=== PATIENT | female | born 1985 | race Caucasian/White ===

== ENCOUNTER 2019-01-13 11:50 | Emergency (ER) | payer SELFPAY ==
[~2019-01-13] VITALS: Ht 170.2 cm; Wt 83.0 kg
[~2019-01-13 11:50] MED LIST: BISM262O23 PO; FAMO-96 PO; ONDA4TAB14 PO
[2019-01-13 11:52] VITALS: BP 138/77; PULSE 95; RESP 16; Ht 170.2 cm; Wt 83.0 kg
[2019-01-13] MEDS ORDERED: ONDANSETRON (ODT) 4 MG TAB ODT STA (12:44)
[2019-01-13] MEDS ORDERED: AL HYDROX/MG HYDROX/SIMETH 30 ML CUP PO ONE (13:00)
[2019-01-13] MEDS ORDERED: FAMOTIDINE 20 MG TAB PO ONE (13:00)
[2019-01-13] MEDS ORDERED: LIDOCAINE 2% VISC 10 ML CUP PO ONE (13:00)
== END 2019-01-13 13:45 | disposition home or self-care (01) ==
LOC: FTE 11:50
DX: R11.0 Nausea (principal)
CPT/HCPCS: 99283